=== PATIENT | male | born 1970 | race Caucasian/White ===

== ENCOUNTER 2017-01-06 17:44 | Emergency (ER) | payer OTHER ==
[~2017-01-06] VITALS: Ht 172.7 cm; Wt 81.1 kg
[2017-01-06 17:46] VITALS: BP 116/76
[2017-01-06] MEDS ORDERED: TAMS0.4C2 PO (18:05)
== END 2017-01-06 19:46 | disposition home or self-care (01) ==
LOC: ED 19:40
DX: S52.022A Displaced fracture of olecranon process without intraarticular extension of left ulna, initial encounter for closed fracture (principal); W19.XXXA Unspecified fall, initial encounter; Y93.89 Activity, other specified; Y99.8 Other external cause status; Y92.89 Other specified places as the place of occurrence of the external cause
CPT/HCPCS: 29105